=== PATIENT | female | born 1990 | race Hispanic/Latino ===

== ENCOUNTER 2018-05-30 00:03 | Emergency (ER) | payer OTHER ==
[2018-05-30 00:10] VITALS: RESP 18; TEMP 98.4
--- NOTE | 2018-05-30 00:50 | ED PDOC ---
HPI: Headache Time Seen by Provider: 05/30/18 00:16 Chief Complaint (Nursing): Headache Chief Complaint (Provider): Headache History Per: Patient History/Exam Limitations: no limitations Onset/Duration Of Symptoms: Days (x7) Current Symptoms Are (Timing): Still Present Associated Symptoms: Photophobia Additional Complaint(s): 27 y/o female with a PMHx of metabolic disease, fatty acid oxidation disorder, chronic lymes disease, necrosis disease and neuropathy presents to the ED for evaluation of headache, onset one week ago. Patient reports of having received IV IG treatment one week ago and has since had a worsening headache associated with nausea and vomiting. Patient states she normally receives infusions of IV fluids weekly but did not receive treatment this week. Patient additionally states of associated photophobia, hyperacusis and osmophobia. Patient report of having similar types of headaches in the past. Of note, patient reports she has a regimen that includes D10 infusion for headache. Denies fevers and neck stiffness. Past Medical History Reviewed: Historical Data, Nursing Documentation, Vital Signs Vital Signs: Last Vital Signs Temp 98.4 F 05/30/18 00:07 Pulse 103 H 05/30/18 00:07 Resp 18 05/30/18 00:07 BP 140/92 H 05/30/18 00:07 Pulse Ox 97 05/30/18 00:07 - Medical History Other PMH: metabolic disease, fatty acid oxidation disorder, chronic lymes disea se, ne - Surgical History Surgical History: No Surg Hx - Family History Family History: States: Unknown Family Hx - Allergies Allergies/Adverse Reactions: Allergies Allergy/AdvReac Type Severity Reaction Status Date / Time azithromycin Allergy ANAPHYLAXIS Verified 05/30/18 00:06 Cephalosporins Allergy ANAPHYLAXIS Verified 05/30/18 00:06 doxepin Allergy ANAPHYLAXIS Verified 05/30/18 00:06 gabapentin Allergy ANAPHYLAXIS Verified 05/30/18 00:06 minocycline Allergy ANAPHYLAXIS Verified 05/30/18 00:06 Sulfa (Sulfonamide Allergy ANAPHYLAXIS Verified 05/30/18 00:06 Antibiotics) topiramate [From Topamax] Allergy ANAPHYLAXIS Verified 05/30/18 00:06 zanisamide Allergy ANAPHYLAXIS Uncoded 05/30/18 00:06 Review of Systems ROS Statement: Except As Marked, All Systems Reviewed And Found Negative Gastrointestinal: Positive for: Nausea, Vomiting Musculoskeletal: Negative for: Neck Pain Neurological: Positive for: Headache, Other (photophobia, hyeracusis and osmophobia) Physical Exam - Reviewed Nursing Documentation Reviewed: Yes Vital Signs Reviewed: Yes - Physical Exam Appears: Positive for: Uncomfortable (dry heaving) Head Exam: Positive for: ATRAUMATIC, NORMOCEPHALIC Skin: Positive for: Normal Color, Warm, Dry Eye Exam: Negative for: PERRL (bilaterally dilated pupils (chronic as per patient)) Neck: Positive for: Normal, Painless ROM, Supple Cardiovascular/Chest: Positive for: Regular Rate, Rhythm. Negative for: Murmur Respiratory: Positive for: Normal Breath Sounds. Negative for: Respiratory Distress Gastrointestinal/Abdominal: Positive for: Normal Exam, Soft. Negative for: Tenderness Extremity: Positive for: Normal ROM. Negative for: Pedal Edema, Deformity Neurologic/Psych: Positive for: Alert, bundler seasonal greenery II-XII, Oriented, Cerebellar Tests (normal), Gait (normal). Negative for: Motor/Sensory Deficits - Laboratory Results Result Diagrams: 05/30/18 00:40 05/30/18 00:40 - ECG O2 Sat by Pulse Oximetry: 97 (RA) Pulse Ox Interpretation: Normal Medical Decision Making Medical Decision Making: Time: 30 A/P: 27 y/o female with metabolic disease, fatty acid oxidation disorder, chronic lymes disease, necrosis disease and neuropathy presenting with a headache. -- Not concerned for subarachnoid or meningitis -- Patient symptoms are most likely acute on chronic -- Will provide symptomatic relief -- BMP -- CBC with differentials -- Dextrose 10% in Water IV 500 mls/hr -- Dextrose 10% in Water IV 250 mls/hr -- Reglan 10 mg IVPB -- Toradol 30 mg IVP 630 -- Patient is feeling much better, reports improvement in her headache -- Advised patient to followup with her specialists -- Return precautions given -- Well appearing upon discharge, tolerating PO Scribe Attestation: Documented by Tomás Jim, acting as a scribe for David Hollins MD. Provider Scribe Attestation: All medical record entries made by the Scribe were at my direction and personally dictated by me. I have reviewed the chart and agree that the record accurately reflects my personal performance of the history, physical exam, medical decision making, and the department course for this patient. I have also personally directed, reviewed, and agree with the discharge instructions and disposition. Disposition - Clinical Impression Clinical Impression: Headache - Patient ED Disposition Is Patient to be Admitted: No - Disposition Disposition: Routine/Home Disposition Time: 06:40 Condition: IMPROVED Instructions: Headache, Adult Forms: [facility] ([place]oz[place]ican)
[2018-05-30 00:52] LABS: BASO # 0.1 K/uL (0.0-0.2); EOS # 0.2 K/uL (0.0-0.7); EOS % 1.9 % (0.0-4.0); HEMOGLOBIN 12.5 g/dL (12.0-16.0); LYMPH # 3.1 K/uL (1.0-4.3); LYMPH % 35.3 % (20.0-40.0); MEAN CELL VOLUME 75.7 fl (81.0-99.0); MEAN CORPUSCULAR HEMOGLOBIN 24.9 pg (27.0-31.0); MEAN CORPUSCULAR HGB CONC 32.9 g/dL (33.0-37.0); MEAN PLATELET VOLUME 7.6 fl (7.2-11.7); MONO # 0.7 K/uL (0.0-0.8); MONO % 7.7 % (0.0-10.0); NEUT # 4.8 K/uL (1.8-7.0); NEUT % 54.1 % (50.0-75.0); NRBC % 0.1 % (0.0-0.0); WHITE BLOOD COUNT 8.8 K/uL (4.8-10.8)
[2018-05-30 00:59] LABS: BLOOD UREA NITROGEN 14 mg/dl (7-17); GFR NON-AFRICAN AMERICAN > 60
[2018-05-30] MEDS ORDERED: Potassium Ch 20mEq in D5-1/2NS 1,000 ML IV SCH (01:00)
[2018-05-30] MEDS ORDERED: Promethazine 25 MG in Sodium Chloride 0.9% 50 ML IVPB ONE (02:58)
[2018-05-30] MEDS ORDERED: DiphenhydrAMINE 50 mg/ml Inj IVP STA (02:59)
[2018-05-30] MEDS ORDERED: DiphenhydrAMINE 50 mg/ml Inj ONE (03:02)
[2018-05-30 07:24] VITALS: BP 116/69; PULSE 94; O2SAT 98
== END 2018-05-30 07:38 | disposition home or self-care (01) ==
LOC: H.ER 00:03
DX: R51 Headache (principal); E88.9 Metabolic disorder, unspecified; G62.9 Polyneuropathy, unspecified
CPT/HCPCS: 80048; 81025; 85025; 96365; 96375; 96376; 99285; J1200; J1885; J2405; J2550; J2765